=== PATIENT | male | born 1965 | race Caucasian/White ===

== ENCOUNTER 2019-03-31 10:22 | Emergency (ER) | payer OTHER ==
[~2019-03-31] VITALS: Ht 180.3 cm; Wt 95.3 kg
[2019-03-31] MEDS ORDERED: DILT120C78 PO (10:36)
[2019-03-31 11:22] LABS: BASO # 0.1 10^3/uL (0.0-0.2); BASO % 0.6 % (0.0-1.0); EOS % 0.2 % (0.0-3.0); HEMATOCRIT 37.5 % (42.0-52.0); HEMOGLOBIN 12.8 g/dl (13.5-17.5); LYMPH # 2.2 10^3/uL (1.5-4.5); LYMPH % 24.4 % (24.0-44.0); MEAN CORPUSCULAR HEMOGLOBIN 30.5 pg (27.0-33.0); MEAN CORPUSCULAR HGB CONC 34.1 g/dl (32.0-36.5); MEAN CORPUSCULAR VOLUME 89.3 fl (80.0-96.0); MONO % 10.7 % (0.0-5.0); NEUTROPHILS # 5.7 10^3/uL (1.8-7.7); NEUTROPHILS % 63.9 % (36.0-66.0); PLATELET COUNT, AUTOMATED 237 10^3/uL (150-450)
--- NOTE | 2019-03-31 11:30 | REP ---
Right lower extremity deep vein duplex ultrasound: The deep veins demonstrate normal compression, normal Doppler color flow and normal Doppler waveforms with respiration and augmentation from the popliteal vein to the common femoral vein. There is a cyst posteromedially measuring 3.4 x 1.9 x 1.0 cm, likely a Carlson's cyst. Impression: There is no deep vein thrombus. There is a cyst posteromedially measuring 3.4 x 1.9 x 1.0 cm, likely a Carlson's cyst. Electronically Signed by Oskar Olivier MD 03/31/2019 11:22 A
[2019-03-31 11:42] VITALS: BP 132/82
[2019-03-31 11:43] LABS: ERYTHROCYTE SEDIMENTATION RATE 21 mm/hr (0-20)
[2019-03-31 11:59] LABS: BLOOD UREA NITROGEN 12 MG/DL (7-18); C REACTIVE PROTEIN QUANTITATIV 1.24 MG/DL (0.00-0.30); CALCIUM LEVEL 9.6 MG/DL (8.5-10.1); CARBON DIOXIDE LEVEL 27 MEQ/L (21-32); CHLORIDE LEVEL 105 MEQ/L (98-107); CREATININE FOR GFR 0.96 MG/DL (0.70-1.30); GLOMERULAR FILTRATION RATE > 60.0 (>56); GLUCOSE, FASTING 120 MG/DL (70-100); POTASSIUM SERUM 4.2 MEQ/L (3.5-5.1); SODIUM LEVEL 140 MEQ/L (136-145)
== END 2019-03-31 11:50 | disposition home or self-care (01) ==
LOC: M ED 10:22
DX: M71.21 Synovial cyst of popliteal space [Baker], right knee (principal); R60.0 Localized edema; I10 Essential (primary) hypertension; I35.0 Nonrheumatic aortic (valve) stenosis; M10.9 Gout, unspecified; Z79.82 Long term (current) use of aspirin